=== PATIENT | male | born 1995 | race Caucasian/White ===

== ENCOUNTER → 2020-04-08 | Outpatient (CLI) | payer OTHER | LOC: LAB 14:14 | PROVIDERS: ATTEND Physician Assistant | DX: R79.89 Other specified abnormal findings of blood chemistry (principal) | CPT/HCPCS: 36415; 84484 ==

== ENCOUNTER 2021-03-03 18:09 | Emergency (ER) | payer OTHER ==
[~2021-03-03] VITALS: Ht 182.9 cm; Wt 77.2 kg
[2021-03-03 18:18] VITALS: BP 150/82
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
[2021-03-03] MEDS ORDERED: IBUPROFEN 600 MG TABLET. PO ONE (18:30)
[2021-03-03] MEDS ORDERED: ACETAMINOPHEN 500 MG TABLET PO ONE (18:30)
== END 2021-03-03 18:42 | disposition home or self-care (01) ==
LOC: ER 18:09
DX: M25.511 Pain in right shoulder (principal); M25.512 Pain in left shoulder; V49.49XA Driver injured in collision with other motor vehicles in traffic accident, initial encounter; Y93.I9 Activity, other involving external motion; Y92.89 Other specified places as the place of occurrence of the external cause; Y99.8 Other external cause status
CPT/HCPCS: 99283